=== PATIENT | female | born 1980 | race Two or more races ===

== ENCOUNTER 2018-04-11 11:35 | Emergency (ER) | payer SELFPAY ==
[~2018-04-11] VITALS: Ht 154.9 cm; Wt 59.9 kg
[~2018-04-11 11:35] MED LIST: ACETAMINOPHEN-1 EAC1 ORAL; CEPHALEXIN500 M1 PO; COLACE100 MG PO; IBUPROFEN600 MG ORAL; MIRALAX17 GM PO; NKM; NORCO 5-325 TA1 EACH ORAL; VICODIN 5-5001 EACH PO
[2018-04-11] MEDS ORDERED: LIDODERM700 M1 TOPIC (12:10)
[2018-04-11] MEDS ORDERED: ROBAXIN-750750 MG PO (12:10)
[2018-04-11] MEDS ORDERED: ACETAMINOPHEN-1 EAC1 ORAL (12:10)
[2018-04-11] MEDS ORDERED: Acetaminophen 500mg (ES) tab ORAL ONE (12:15)
[2018-04-11] MEDS ORDERED: Methocarbamol 750mg tab ORAL ONE (12:15)
[2018-04-11 12:20] VITALS: BP 104/65
--- NOTE | 2018-04-12 14:55 | Emergency Room Report ---
History of Present Illness General Chief Complaint: Back Pain-No Injury Source: Patient Present Illness HPI 37-year-old female presents ED complaining of back pain. Patient's been having this chronic back pain for many years now. Resulted from a work injury when she fell. States she has a slipped disc in her lower back and is dull, 8 out of 10, nonradiating. Denies bowel or bladder incontinence. Denies any leg or motor weakness. States that her pain medications at home are not helping. denies recent injury. no other aggravating or relieving factors. denies any other associated symptoms Allergies: Coded Allergies: No Known Allergies (Unverified , 09/20/12) Patient History Past Medical History: none Past Surgical History: none Pertinent Family History: none Social History: Denies: smoking, alcohol use, drug use Last Menstrual Period: 03/17/18 Now: No Immunizations: UTD Reviewed Nursing Documentation: PMH: Agreed; PSxH: Agreed Nursing Documentation-PMH Past Medical History: No History, Except For Review of Systems All Other Systems: negative except mentioned in HPI Physical Exam Vital Signs Date Time Temp Pulse Resp B/P (MAP) Pulse Ox O2 Delivery O2 Flow Rate FiO2 04/11/18 11:42 98.6 73 20 99/55 97 Room Air 98.6 Sp02 EP Interpretation: reviewed General Appearance: normal inspection Head: normocephalic Eyes: bilateral eye normal inspection, bilateral eye PERRL ENT: normal ENT inspection Neck: normal inspection Respiratory: normal inspection Cardiovascular #1: normal inspection Gastrointestinal: normal inspection Rectal: deferred Genitourinary: no CVA tenderness, vertebral tenderness Musculoskeletal: back normal Neurologic: alert, oriented x3, responsive, motor strength/tone normal, sensory intact, speech normal Psychiatric: normal inspection Skin: normal inspection Lymphatic: normal inspection Medical Decision Making Diagnostic Impression: Primary Impression: Chronic back pain Qualified Codes: M54.5 - Low back pain; G89.29 - Other chronic pain ER Course Hospital Course 37-year-old female presents ED complaining of lower back pain. h/o chronic back pain Differential diagnoses include: pyelonephritis, kidney stone, muscle strain, Lspine fracture Clinical course Patient placed on stretcher. After initial history, physical exam reveals female in no acute distress. There is no focal neurological deficits. 5 out of 5 motor strength in bilateral lower extremities. No incontinence. Patient given Tylenol, Lidoderm patch, Robaxin in ED area we'll discharge which were course and pain medications. Patient needs to follow-up with her PMD for further care Diagnosis - chronic back pain Stable and discharged to home with prescription for tylenol, robaxin, lidoderm. Followup with PMD. Return to ED if symptoms recur or worsen Last Vital Signs Date Time Temp Pulse Resp B/P (MAP) Pulse Ox O2 Delivery O2 Flow Rate FiO2 04/11/18 12:28 98.0 81 18 104/65 99 Room Air 98.0 Status: improved Disposition: HOME, SELF-CARE Condition: Stable Scripts Lidocaine (Lidoderm) 1 Each Adh..patch 1 PATCH TOPIC DAILY, #7 PATCH 0 Refills Patch(es) may remain in place for up to 12 hours in any 24-hour period. Prov: Edvin Oglesby MD 04/11/18 Methocarbamol* (ROBAXIN-750*) 750 Mg Tablet 750 MG PO TID, #21 TAB 0 Refills Prov: Edvin Oglesby MD 04/11/18 Acetaminophen With Codeine (T#3) (TYLENOL #3 TAB*) Y Tab 1 TAB ORAL Q8H PRN for For Pain, #15 TAB Prov: Edvin Oglesby MD 04/11/18 Referrals: NOT CHOSEN IPA/,REFERRING (PCP) Patient Instructions: Chronic Back Pain Edvin Oglesby MD Apr 12, 2018 14:55
== END 2018-04-11 12:45 | disposition home or self-care (01) ==
LOC: EMR 12:16
DX: M54.9 Dorsalgia, unspecified (principal); G89.29 Other chronic pain
CPT/HCPCS: 99283

== ENCOUNTER 2020-08-04 10:01 | Emergency (ER) | payer SELFPAY ==
[~2020-08-04] VITALS: Ht 154.9 cm; Wt 55.8 kg
[~2020-08-04 10:01] MED LIST changes: +LIDODERM700 M1 TOPIC; +ROBAXIN-750750 MG PO
--- NOTE | 2020-08-04 10:18 | Emergency Room Report ---
History of Present Illness General Chief Complaint: Female Urogenital Problems Source: Patient Present Illness HPI Patient complains of right flank pain radiating up to her head. She has a history of chronic back pain and also urinary tract infections in the past. The pain has been present for 3 weeks. It worsened within the last 24 to 48 hours. In addition she is complaining about some dysuria. She rates the pain 8/10 at this time. It is aching and somewhat sharp. She denies shortness of breath or cough. There is no nausea, vomiting or diarrhea. She tried taking 1000 mg of Naprosyn with little relief. She denies hematuria or previous renal stones. Last menstruation was July 19 and normal for her. Patient denies exposure to Covid positive contacts. No fevers, chills, sore throat, chest pain, palpitations, nausea, vomiting, diarrhea, shortness of breath, rashes, depression, anxiety, visual changes, dizziness, headache. Allergies: Coded Allergies: No Known Allergies (Unverified , 09/20/12) COVID-19 Screening Contact w/high risk pt: No Experienced COVID-19 symptoms?: No COVID-19 Testing performed BEFORE SCHOOL: Yes COVID-19 Screening: Negative COVID-19 COVID-19 Testing Source: nasal Patient History Past Medical History: see triage record, old chart reviewed Past Surgical History: other - Breast implants Social History: Reports: smoking Social History Narrative From home Last Menstrual Period: 07/19/20 Reviewed Nursing Documentation: PMH: Agreed; PSxH: Agreed Nursing Documentation-PMH Past Medical History: No History, Except For Review of Systems All Other Systems: negative except mentioned in HPI Physical Exam Vital Signs Date Time Temp Pulse Resp B/P (MAP) Pulse Ox O2 Delivery O2 Flow Rate FiO2 08/04/20 10:04 98.1 77 17 93/55 (68) 97 Room Air Sp02 EP Interpretation: reviewed, normal General Appearance: well appearing, no apparent distress, GCS 15 Head: normocephalic Eyes: bilateral eye normal inspection, bilateral eye PERRL, bilateral eye EOMI ENT: other - Wearing a mask Neck: supple Respiratory: lungs clear, normal breath sounds Cardiovascular #1: regular rate, rhythm Cardiovascular #2: 2+ radial (R) Gastrointestinal: normal inspection, normal bowel sounds, non tender - See , no mass, non-distended Genitourinary: CVA tenderness (R) Musculoskeletal: normal range of motion, gait/station normal, other - Paraspinous and some CVA tenderness. Able to sit and lay down without difficulty or muscle spasms. Left elbow full deformity Neurologic: alert, oriented x3, grossly normal Psychiatric: mood/affect normal Skin: no rash, warm/dry Medical Decision Making Diagnostic Impression: Primary Impression: Flank pain Additional Impression: Anemia Qualified Codes: D64.9 - Anemia, unspecified ER Course Patient presents with 3 weeks of right flank pain and now with some dysuria. Differential includes renal stone, pyelonephritis, muscle strain, other urinary tract infection, gallbladder pain amongst others. Patient evaluated with CT of the abdomen and pelvis, and labs. No signs or symptoms of Covid disease at this time. Patient is treated with IV hydration and analgesia. Labs unremarkable except for anemia. Urinalysis clear. CT of the abdomen as below which is essentially negative. Patient pain is resolved. Discussed findings with patient and observation as an outpatient. Discussed treatment plan. Discussed the importance of close outpa tient follow-up. Patient stable for outpatient observation and treatment. Laboratory Tests Test 08/04/20 10:28 White Blood Count 9.6 K/UL (4.8-10.8) Red Blood Count 4.58 M/UL (4.20-5.40) Hemoglobin 8.9 G/DL (12.0-16.0) L Hematocrit 29.6 % (37.0-47.0) L Mean Corpuscular Volume 65 FL (80-99) L Mean Corpuscular Hemoglobin 19.4 PG (27.0-31.0) L Mean Corpuscular Hemoglobin Concent 30.0 G/DL (32.0-36.0) L Red Cell Distribution Width 16.3 % (11.6-14.8) H Platelet Count 327 K/UL (150-450) Mean Platelet Volume 8.9 FL (6.5-10.1) Neutrophils (%) (Auto) 71.9 % (45.0-75.0) Lymphocytes (%) (Auto) 21.1 % (20.0-45.0) Monocytes (%) (Auto) 5.0 % (1.0-10.0) Eosinophils (%) (Auto) 0.9 % (0.0-3.0) Basophils (%) (Auto) 1.1 % (0.0-2.0) Prothrombin Time 11.1 SEC (9.30-11.50) Prothrombin Time INR 1.0 (0.9-1.1) Activated Partial Thromboplast Time 26 SEC (23-33) Urine Color Pale yellow Urine Appearance Clear Urine pH 7 (4.5-8.0) Urine Specific [place] 1.010 (1.005-1.035) Urine Protein Negative (NEGATIVE) Urine Glucose (UA) Negative (NEGATIVE) Urine Ketones Negative (NEGATIVE) Urine Blood 1+ (NEGATIVE) H Urine Nitrite Negative (NEGATIVE) Urine Bilirubin Negative (NEGATIVE) Urine Urobilinogen Normal MG/DL (0.0-1.0) Urine Leukocyte Esterase 2+ (NEGATIVE) H Urine RBC 0-2 /HPF (0 - 2) Urine WBC 2-4 /HPF (0 - 2) Urine Squamous Epithelial Cells Few /LPF (NONE/OCC) Urine Bacteria Few /HPF (NONE) Urine HCG, Qualitative Negative (NEGATIVE) Sodium Level 142 MMOL/L (136-145) Potassium Level 3.9 MMOL/L (3.5-5.1) Chloride Level 107 MMOL/L (98-107) Carbon Dioxide Level 26 MMOL/L (21-32) Anion Gap 9 mmol/L (5-15) Blood Urea Nitrogen 11 mg/dL (7-18) Creatinine 0.5 MG/DL (0.55-1.30) L Estimated Glomerular Filtration Rate > 60 mL/min (>60) Glucose Level 89 MG/DL (74-106) Calcium Level 8.5 MG/DL (8.5-10.1) Total Bilirubin 0.4 MG/DL (0.2-1.0) Aspartate Amino Transferase (AST) 16 U/L (15-37) Alanine Aminotransferase (ALT) 16 U/L (12-78) Alkaline Phosphatase 92 U/L (46-116) Total Protein 7.5 G/DL (6.4-8.2) Albumin 3.2 G/DL (3.4-5.0) L Globulin 4.3 g/dL Albumin/Globulin Ratio 0.7 (1.0-2.7) L Lipase 204 U/L (73-393) Rhythm Strip Diag. Results EP Interpretation: yes Rhythm: NSR, no PVC's, no ectopy CT/MRI/US Diagnostic Results CT/MRI/US Diagnostic Results : Imaging Test Ordered: Abdomen and pelvis Impression Impression: No definite acute abnormality. Negative for evidence of hydro nephrosis or urinary stone disease Bilateral breast implants are incidentally noted Last Vital Signs Date Time Temp Pulse Resp B/P (MAP) Pulse Ox O2 Delivery O2 Flow Rate FiO2 08/04/20 14:19 98.4 68 19 110/72 100 Room Air Status: improved Disposition: HOME, SELF-CARE Condition: Improved Scripts Tramadol Hcl* (ULTRAM*) 50 Mg Tablet 50 MG ORAL Q6H PRN for For Pain, #8 TAB 0 Refills Prov: Ki Coronado MD 08/04/20 Ibuprofen* (MOTRIN*) 600 Mg Tablet 600 MG ORAL Q6H PRN for FOR PAIN, #20 TAB 0 Refills Prov: Ki Coronado MD 08/04/20 Methocarbamol* (ROBAXIN-500*) 500 Mg Tablet 500 MG ORAL TID PRN for muscle spasms, #10 TAB 0 Refills Prov: Ki Coronado MD 08/04/20 Ki Coronado MD Aug 04, 2020 10:18
[2020-08-04] MEDS ORDERED: Morphine Sulfate 2mg/ml Inj(IV/IM USE ONLY) IVP ONE (10:30)
[2020-08-04] MEDS ORDERED: Ketorolac 30mg Inj IV ONE (10:30)
[2020-08-04 10:33] VITALS: BP 113/67
[2020-08-04 10:42] LABS: BASOPHILS % (AUTO) 1.1 % (0.0-2.0); EOSINOPHILS % (AUTO) 0.9 % (0.0-3.0); HEMATOCRIT 29.6 % (37.0-47.0); HEMOGLOBIN 8.9 G/DL (12.0-16.0); LYMPHOCYTES % (AUTO) 21.1 % (20.0-45.0); MEAN CORPUSCULAR VOLUME 65 FL (80-99); NEUTROPHILS % (AUTO) 71.9 % (45.0-75.0); PLATELET COUNT 327 K/UL (150-450); RED BLOOD COUNT 4.58 M/UL (4.20-5.40); RED CELL DISTRIBUTION WIDTH 16.3 % (11.6-14.8); WHITE BLOOD COUNT 9.6 K/UL (4.8-10.8)
[2020-08-04 10:44] LABS: APPEARANCE,URINE CLEAR; BILIRUBIN, URINE NEGATIVE (NEGATIVE); COLOR,URINE PALE YELLOW; GLUCOSE, URINE (UA) NEGATIVE (NEGATIVE); KETONES,URINE NEGATIVE (NEGATIVE); LEUKOCYTE ESTERASE ,URINE 2+ (NEGATIVE); NITRITE,URINE NEGATIVE (NEGATIVE); PH,URINE 7 (4.5-8.0); PROTEIN,URINE NEGATIVE (NEGATIVE); UROBILINOGEN,URINE NORMAL MG/DL (0.0-1.0)
[2020-08-04 10:51] LABS: ANION GAP 9 mmol/L (5-15); BLOOD UREA NITROGEN 11 mg/dL (7-18); CALCIUM 8.5 MG/DL (8.5-10.1); CARBON DIOXIDE 26 MMOL/L (21-32); CHLORIDE 107 MMOL/L (98-107); CREATININE 0.5 MG/DL (0.55-1.30); POTASSIUM 3.9 MMOL/L (3.5-5.1); SODIUM 142 MMOL/L (136-145)
[2020-08-04 10:56] LABS: ALANINE AMINOTRANSFERASE 16 U/L (12-78); ALBUMIN 3.2 G/DL (3.4-5.0); ALBUMIN/GLOBULIN RATIO 0.7 (1.0-2.7); ALKALINE PHOSPHATASE 92 U/L (46-116); ASPARTATE AMINO TRANSFERASE 16 U/L (15-37); BILIRUBIN,TOTAL 0.4 MG/DL (0.2-1.0)
--- NOTE | 2020-08-04 12:44 | Diagnostic Imaging Report ---
Indication: Right flank pain Technique: Spiral acquisitions obtained through the abdomen and pelvis. No oral or IV contrast utilized, per urinary stone protocol. Multiplanar reconstructions were generated. Total dose length product 207 mGycm. CTDIvol(s) 4 mGy. Dose reduction achieved using automated exposure control Comparison: 09/21/2012 Findings: No renal or ureteral calculi demonstrated. No hydronephrosis or hydroureter. Lack of IV contrast limits assessment of the renal parenchyma. No gross renal parenchymal mass or cyst demonstrated. Lack of IV contrast limits assessment of the other solid organs. The liver is unremarkable. The gallbladder is nondistended. The bile ducts are unremarkable. The pancreas, spleen, adrenals are unremarkable. No retroperitoneal or mesenteric mass or adenopathy. Uterus is prominent without discrete abnormality. No definite pelvic mass or adenopathy. The included lung bases demonstrate posterior dependent atelectatic changes. The bones are unremarkable. There are bilateral breast implants Impression: No definite acute abnormality. Negative for evidence of hydronephrosis or urinary stone disease Bilateral breast implants are incidentally noted The CT scanner at [facility] is accredited by the [employer] and the scans are performed using protocols designed to limit radiation exposure to as low as reasonably achievable to attain images of sufficient resolution adequate for diagnostic evaluation.
[2020-08-04] MEDS ORDERED: IBUPROFEN600 M1 ORAL (14:09)
[2020-08-04] MEDS ORDERED: ROBAXIN-500MG ORAL (14:09)
[2020-08-04] MEDS ORDERED: TRAMADOL HCL50 MG ORAL (14:09)
[2020-08-04 14:19] VITALS: BP 110/72
--- NOTE | 2020-08-04 14:19 | NUR ---
ER DISCHARGE NOTE: Patient is cleared to be discharged per ERMD, pt is aox4, on room air, with stable vital signs. pt was given dc and prescription instructions, pt was able to verbalize understanding, pt id band and iv site removed without complications. pt is able to ambulate with steady gait. pt took all belongings.
== END 2020-08-04 14:19 | disposition home or self-care (01) ==
LOC: EMR 12:14
DX: R10.9 Unspecified abdominal pain (principal); D64.9 Anemia, unspecified; R30.0 Dysuria; F17.200 Nicotine dependence, unspecified, uncomplicated; Z98.82 Breast implant status
CPT/HCPCS: 36415; 74176; 80053; 81003; 81025; 83690; 85025; 85610; 85730; 96361; 96374; 96375; 99284; J1885; J2270; J2405

== ENCOUNTER 2020-08-22 11:38 | Emergency (ER) | payer MEDICAID ==
[~2020-08-22] VITALS: Ht 157.5 cm; Wt 55.8 kg
[~2020-08-22 11:38] MED LIST changes: +IBUPROFEN600 M1 ORAL; +ROBAXIN-500MG ORAL; +TRAMADOL HCL50 MG ORAL
[2020-08-22] MEDS ORDERED: Ketorolac 30mg Inj IV ONE (12:30)
[2020-08-22] MEDS ORDERED: Omnipaque 350 100ml vial INJ PRN (12:30)
--- NOTE | 2020-08-22 12:48 | Emergency Room Report ---
History of Present Illness General Chief Complaint: back pain Source: Patient (Essie Perez M.D.) Present Illness HPI Patient is a 40-year-old female current smoker who presents to the ER complaining of right sided upper back pain and substernal chest discomfort. She states that this has been going on for the past month. She states that it is worse when she takes in a deep breath. She denies any lower extremity pain but states that she occasionally gets edema. She denies any family history of early cardiovascular disease. She denies any history of cancer, recent surgery or recent travel. She denies cough. She denies any abdominal pain nausea or vomiting. (Essie Perez M.D.) Allergies: Coded Allergies: No Known Allergies (Unverified , 09/20/12) COVID-19 Screening Contact w/high risk pt: No Experienced COVID-19 symptoms?: No COVID-19 Testing performed CLAIMS VICE PRESIDENT: No (Essie Perez M.D.) Patient History Reviewed Nursing Documentation: PMH: Agreed; PSxH: Agreed (Essie Perez M.D.) Review of Systems All Other Systems: negative except mentioned in HPI (Essie Perez M.D.) Physical Exam Vital Signs Date Time Temp Pulse Resp B/P (MAP) Pulse Ox O2 Delivery O2 Flow Rate FiO2 08/22/20 12:16 98.2 84 18 98/70 (79) Sp02 EP Interpretation: reviewed, normal General Appearance: no apparent distress, alert, GCS 15, non-toxic Head: normocephalic, atraumatic Eyes: bilateral eye normal inspection, bilateral eye PERRL ENT: hearing grossly normal, normal pharynx, no angioedema, normal voice Neck: full range of motion, supple/symm/no masses Respiratory: no respiratory distress, no accessory muscle use, other - Pain on inspiration tenderness palpation of the right lateral ribs no crepitus Cardiovascular #1: regular rate, rhythm Gastrointestinal: non tender, soft, no guarding, no rebound Rectal: deferred Genitourinary: no CVA tenderness Musculoskeletal: normal range of motion, other - biLateral calf tenderness Neurologic: esthetician/spa coordinator III-XII nml as tested, oriented x3 Psychiatric: no suicidal/homicidal ideation Skin: no rash Lymphatic: no adenopathy (Essie Perez M.D.) Medical Decision Making Diagnostic Impression: Primary Impression: Anemia Additional Impression: Chest wall pain ER Course Patient's labs demonstrate anemia which is chronic. Patient not currently requiring a blood transfusion. Otherwise patient's labs demonstrate no significant acute abnormalities. Duplex of the lower extremities demonstrates no evidence for DVT. Chest x-ray demonstrates no acute cardiopulmonary pathology. CTA has been ordered to rule out pulmonary embolism. Patient signed out to Dr. Landrum at [address] results, reevaluation and final disposition. Laboratory Tests Test 08/22/20 12:38 White Blood Count 8.2 K/UL (4.8-10.8) Red Blood Count 4.62 M/UL (4.20-5.40) Hemoglobin 8.7 G/DL (12.0-16.0) L Hematocrit 29.9 % (37.0-47.0) L Mean Corpuscular Volume 65 FL (80-99) L Mean Corpuscular Hemoglobin 18.8 PG (27.0-31.0) L Mean Corpuscular Hemoglobin Concent 29.0 G/DL (32.0-36.0) L Red Cell Distribution Width 16.3 % (11.6-14.8) H Platelet Count 409 K/UL (150-450) Mean Platelet Volume 8.5 FL (6.5-10.1) Neutrophils (%) (Auto) 70.4 % (45.0-75.0) Lymphocytes (%) (Auto) 20.8 % (20.0-45.0) Monocytes (%) (Auto) 6.4 % (1.0-10.0) Eosinophils (%) (Auto) 1.5 % (0.0-3.0) Basophils (%) (Auto) 0.9 % (0.0-2.0) Prothrombin Time 11.6 SEC (9.30-11.50) H Prothrombin Time INR 1.1 (0.9-1.1) Activated Partial Thromboplast Time 26 SEC (23-33) D-Dimer 0.37 mg/L FEU (0.00-0.49) Urine Color Pale yellow Urine Appearance Clear Urine pH 6.5 (4.5-8.0) Urine Specific [place] 1.010 (1.005-1.035) Urine Protein Negative (NEGATIVE) Urine Glucose (UA) Negative (NEGATIVE) Urine Ketones Negative (NEGATIVE) Urine Blood Negative (NEGATIVE) Urine Nitrite Negative (NEGATIVE) Urine Bilirubin Negative (NEGATIVE) Urine Urobilinogen Normal MG/DL (0.0-1.0) Urine Leukocyte Esterase Negative (NEGATIVE) Sodium Level 141 MMOL/L (136-145) Potassium Level 3.9 MMOL/L (3.5-5.1) Chloride Level 105 MMOL/L (98-107) Carbon Dioxide Level 29 MMOL/L (21-32) Anion Gap 7 mmol/L (5-15) Blood Urea Nitrogen 11 mg/dL (7-18) Creatinine 0.5 MG/DL (0.55-1.30) L Estimated Glomerular Filtration Rate > 60 mL/min (>60) Glucose Level 91 MG/DL (74-106) Calcium Level 8.7 MG/DL (8.5-10.1) Magnesium Level 2.0 MG/DL (1.8-2.4) Total Bilirubin 0.4 MG/DL (0.2-1.0) Aspartate Amino Transferase (AST) 10 U/L (15-37) L Alanine Aminotransferase (ALT) 12 U/L (12-78) Alkaline Phosphatase 95 U/L (46-116) Troponin I 0.005 ng/mL (0.000-0.056) Pro-B-Type Natriuretic Peptide 60 pg/mL (0-125) Total Protein 7.7 G/DL (6.4-8.2) Albumin 3.4 G/DL (3.4-5.0) Globulin 4.3 g/dL Albumin/Globulin Ratio 0.8 (1.0-2.7) L Human Chorionic Gonadotropin, Qual Negative (NEGATIVE) Urine Opiates Screen Negative (NEGATIVE) Urine Barbiturates Screen Negative (NEGATIVE) Phencyclidine (PCP) Screen Negative (NEGATIVE) Urine Amphetamines Screen Negative (NEGATIVE) Urine Benzodiazepines Screen Negative (NEGATIVE) Urine Cocaine Screen Negative (NEGATIVE) Urine Marijuana (THC) Screen Negative (NEGATIVE) (Essie Perez M.D.) ER Course Assumed care of the patient from the previous provider at approximately 1400. Please refer to initial note for full history and physical exam. Briefly, 37-year-old female presented for chest pain. Patient found to be anemic which is chronic. No DVT identified. At the time of signout CTA was pending. No pulmonary embolism or other pathology identified. Patient has remained stable in the ER and is stable for outpatient follow-up. Will discharge with PMD follow-up. Instructed to return with new or worsening symptoms. Laboratory Tests Test 08/22/20 12:38 White Blood Count 8.2 K/UL (4.8-10.8) Red Blood Count 4.62 M/UL (4.20-5.40) Hemoglobin 8.7 G/DL (12.0-16.0) L Hematocrit 29.9 % (37.0-47.0) L Mean Corpuscular Volume 65 FL (80-99) L Mean Corpuscular Hemoglobin 18.8 PG (27.0-31.0) L Mean Corpuscular Hemoglobin Concent 29.0 G/DL (32.0-36.0) L Red Cell Distribution Width 16.3 % (11.6-14.8) H Platelet Count 409 K/UL (150-450) Mean Platelet Volume 8.5 FL (6.5-10.1) Neutrophils (%) (Auto) 70.4 % (45.0-75.0) Lymphocytes (%) (Auto) 20.8 % (20.0-45.0) Monocytes (%) (Auto) 6.4 % (1.0-10.0) Eosinophils (%) (Auto) 1.5 % (0.0-3.0) Basophils (%) (Auto) 0.9 % (0.0-2.0) Prothrombin Time 11.6 SEC (9.30-11.50) H Prothrombin Time INR 1.1 (0.9-1.1) Activated Partial Thromboplast Time 26 SEC (23-33) D-Dimer 0.37 mg/L FEU (0.00-0.49) Urine Color Pale yellow Urine Appearance Clear Urine pH 6.5 (4.5-8.0) Urine Specific [place] 1.010 (1.005-1.035) Urine Protein Negative (NEGATIVE) Urine Glucose (UA) Negative (NEGATIVE) Urine Ketones Negative (NEGATIVE) Urine Blood Negative (NEGATIVE) Urine Nitrite Negative (NEGATIVE) Urine Bilirubin Negative (NEGATIVE) Urine Urobilinogen Normal MG/DL (0.0-1.0) Urine Leukocyte Esterase Negative (NEGATIVE) Sodium Level 141 MMOL/L (136-145) Potassium Level 3.9 MMOL/L (3.5-5.1) Chloride Level 105 MMOL/L (98-107) Carbon Dioxide Level 29 MMOL/L (21-32) Anion Gap 7 mmol/L (5-15) Blood Urea Nitrogen 11 mg/dL (7-18) Creatinine 0.5 MG/DL (0.55-1.30) L Estimated Glomerular Filtration Rate > 60 mL/min (>60) Glucose Level 91 MG/DL (74-106) Calcium Level 8.7 MG/DL (8.5-10.1) Magnesium Level 2.0 MG/DL (1.8-2.4) Total Bilirubin 0.4 MG/DL (0.2-1.0) Aspartate Amino Transferase (AST) 10 U/L (15-37) L Alanine Aminotransferase (ALT) 12 U/L (12-78) Alkaline Phosphatase 95 U/L (46-116) Troponin I 0.005 ng/mL (0.000-0.056) Pro-B-Type Natriuretic Peptide 60 pg/mL (0-125) Total Protein 7.7 G/DL (6.4-8.2) Albumin 3.4 G/DL (3.4-5.0) Globulin 4.3 g/dL Albumin/Globulin Ratio 0.8 (1.0-2.7) L Human Chorionic Gonadotropin, Qual Negative (NEGATIVE) Urine Opiates Screen Negative (NEGATIVE) Urine Barbiturates Screen Negative (NEGATIVE) Phencyclidine (PCP) Screen Negative (NEGATIVE) Urine Amphetamines Screen Negative (NEGATIVE) Urine Benzodiazepines Screen Negative (NEGATIVE) Urine Cocaine Screen Negative (NEGATIVE) Urine Marijuana (THC) Screen Negative (NEGATIVE) (Kenton Landrum MD) EKG Diagnostic Results Troponin ordered: Yes When was troponin ordered?: Aug 22, 2020 EKG Time: 12:40 EP Interpretation: Essie Perez MD Rate: normal - 65 bpm Rhythm: NSR ST Segments: no acute changes ASA given to the pt in ED: No (Essie Perez M.D.) Rhythm Strip Diag. Results Rhythm Strip Time: 12:52 EP Interpretation: yes - Essie Perez MD Rate: 67 bpm Rhythm: NSR, no PVC's, no ectopy (Essie Perez M.D.) Chest X-Ray Diagnostic Results Chest X-Ray Diagnostic Results : Chest X-Ray Ordered: Yes # of Views/Limited/Complete: 1 View Indication: Chest Pain EP Interpretation: Yes Interpretation: no consolidation, no effusion, no pneumothorax Impression: No acute disease Electronically Signed by: Essie Perez MD (Essie Perez M.D.) CT/MRI/US Diagnostic Results CT/MRI/US Diagnostic Results : Impression Final Report EXAM: CT Chest With Intravenous Contrast CLINICAL HISTORY: SOB TECHNIQUE: Axial computed tomography images of the chest with intravenous contrast. CTDI is 54.40 mGy and DLP is 128.30 mGy-cm. One or more of the following dose reduction techniques were used: automated exposure control, adjustment of the mA and/or kV according to patient size, use of iterative reconstruction technique. MIP reconstructed images were created and reviewed. COMPARISON: No relevant prior studies available. FINDINGS: Lungs: No pulmonary embolus. Mild consolidative atelectasis in the lung bases. Pleural space: Unremarkable. No pneumothorax. No effusion. Heart: No cardiomegaly. No pericardial effusion. Bones/joints: No acute fracture. Soft tissues: Breast implants. Vasculature: Unremarkable. No thoracic aortic aneurysm. Lymph nodes: No enlarged lymph nodes. IMPRESSION: No pulmonary embolus. Radiologist: Efrain Velez M.D. Electronically Signed: 08/22/20 14:53 Study ready at 14:17 and initial results transmitted at 14:53 (Kenton Landrum MD) Last Vital Signs Date Time Temp Pulse Resp B/P (MAP) Pulse Ox O2 Delivery O2 Flow Rate FiO2 08/22/20 12:16 98.2 84 18 98/70 (79) (Essie Perez M.D.) Disposition: HOME, SELF-CARE Condition: Stable Physician Consult: Dr. Landrum at 1400 (Essie Perez M.D.) Referrals: NOT CHOSEN IPA/,REFERRING (PCP) Additional Instructions: Please note that this report is being documented using [employer] technology. This can lead to erroneous entry secondary to incorrect interpretation by the dictating instrument. Essie Perez M.D. Aug 22, 2020 12:48 Kenton Landrum MD Aug 22, 2020 15:05
--- NOTE | 2020-08-22 12:58 | Diagnostic Imaging Report ---
EXAM: XR Chest, 1 View CLINICAL HISTORY: SOB TECHNIQUE: Frontal view of the chest. COMPARISON: No relevant prior studies available. FINDINGS: Lungs: No consolidation. Pleural space: Unremarkable. No pneumothorax. Heart: Unremarkable. No cardiomegaly. Mediastinum: Unremarkable. Bones/joints: No acute fracture. IMPRESSION: No acute cardiopulmonary disease.
[2020-08-22 13:10] LABS: BASOPHILS % (AUTO) 0.9 % (0.0-2.0); EOSINOPHILS % (AUTO) 1.5 % (0.0-3.0); HEMATOCRIT 29.9 % (37.0-47.0); HEMOGLOBIN 8.7 G/DL (12.0-16.0); LYMPHOCYTES % (AUTO) 20.8 % (20.0-45.0); MEAN CORPUSCULAR VOLUME 65 FL (80-99); MONOCYTES % (AUTO) 6.4 % (1.0-10.0); NEUTROPHILS % (AUTO) 70.4 % (45.0-75.0); PLATELET COUNT 409 K/UL (150-450); RED BLOOD COUNT 4.62 M/UL (4.20-5.40); RED CELL DISTRIBUTION WIDTH 16.3 % (11.6-14.8); WHITE BLOOD COUNT 8.2 K/UL (4.8-10.8)
[2020-08-22 13:14] LABS: APPEARANCE,URINE CLEAR; BILIRUBIN, URINE NEGATIVE (NEGATIVE); COLOR,URINE PALE YELLOW; GLUCOSE, URINE (UA) NEGATIVE (NEGATIVE); KETONES,URINE NEGATIVE (NEGATIVE); LEUKOCYTE ESTERASE ,URINE NEGATIVE (NEGATIVE); NITRITE,URINE NEGATIVE (NEGATIVE); PH,URINE 6.5 (4.5-8.0); PROTEIN,URINE NEGATIVE (NEGATIVE); UROBILINOGEN,URINE NORMAL MG/DL (0.0-1.0)
[2020-08-22 13:21] VITALS: BP 114/78
[2020-08-22 13:23] LABS: ANION GAP 7 mmol/L (5-15); BLOOD UREA NITROGEN 11 mg/dL (7-18); CALCIUM 8.7 MG/DL (8.5-10.1); CARBON DIOXIDE 29 MMOL/L (21-32); CHLORIDE 105 MMOL/L (98-107); CREATININE 0.5 MG/DL (0.55-1.30); POTASSIUM 3.9 MMOL/L (3.5-5.1); SODIUM 141 MMOL/L (136-145)
[2020-08-22 13:24] LABS: INR 1.1 (0.9-1.1)
--- NOTE | 2020-08-22 13:29 | Diagnostic Imaging Report ---
EXAM: US Duplex Bilateral Lower Extremities Veins CLINICAL HISTORY: PAIN TECHNIQUE: Real-time duplex ultrasound scan of the bilateral lower extremity veins integrating B-mode two-dimensional vascular structure, Doppler spectral analysis, color flow Doppler imaging and compression. COMPARISON: No relevant prior studies available. FINDINGS: Right deep veins: Unremarkable. No DVT in the right common femoral, femoral, proximal deep femoral or popliteal veins. The veins demonstrate normal color flow, are normally compressible, with normal phasic flow and/or augmentation response. Right superficial veins: Unremarkable. No thrombus in the visualized right great saphenous vein. Left deep veins: Unremarkable. No DVT in the left common femoral, femoral, proximal deep femoral or popliteal veins. The veins demonstrate normal color flow, are normally compressible, with normal phasic flow and/or augmentation response. Left superficial veins: Unremarkable. No thrombus in the visualized left great saphenous vein. Soft tissues: No acute findings. IMPRESSION: No DVT demonstrated.
[2020-08-22 13:39] LABS: ALANINE AMINOTRANSFERASE 12 U/L (12-78); ALBUMIN 3.4 G/DL (3.4-5.0); ALBUMIN/GLOBULIN RATIO 0.8 (1.0-2.7); ALKALINE PHOSPHATASE 95 U/L (46-116); ASPARTATE AMINO TRANSFERASE 10 U/L (15-37); BILIRUBIN,TOTAL 0.4 MG/DL (0.2-1.0)
--- NOTE | 2020-08-22 14:54 | Diagnostic Imaging Report ---
EXAM: CT Chest With Intravenous Contrast CLINICAL HISTORY: SOB TECHNIQUE: Axial computed tomography images of the chest with intravenous contrast. CTDI is 54.40 mGy and DLP is 128.30 mGy-cm. One or more of the following dose reduction techniques were used: automated exposure control, adjustment of the mA and/or kV according to patient size, use of iterative reconstruction technique. MIP reconstructed images were created and reviewed. COMPARISON: No relevant prior studies available. FINDINGS: Lungs: No pulmonary embolus. Mild consolidative atelectasis in the lung bases. Pleural space: Unremarkable. No pneumothorax. No effusion. Heart: No cardiomegaly. No pericardial effusion. Bones/joints: No acute fracture. Soft tissues: Breast implants. Vasculature: Unremarkable. No thoracic aortic aneurysm. Lymph nodes: No enlarged lymph nodes. IMPRESSION: No pulmonary embolus.
[2020-08-22 15:06] VITALS: BP 102/51
== END 2020-08-22 15:13 | disposition home or self-care (01) ==
LOC: EMR 12:20
DX: D64.9 Anemia, unspecified (principal); R07.89 Other chest pain
CPT/HCPCS: 36415; 71045; 71275; 80053; 80307; 81003; 83735; 83880; 84484; 84703; 85025; 85379; 85610; 85730; 93970; 96361; 96374; 99284; J7030

== ENCOUNTER 2020-09-15 21:35 | Emergency (ER) | payer MEDICAID ==
[~2020-09-15] VITALS: Ht 157.5 cm; Wt 54.4 kg
[2020-09-15 21:52] VITALS: BP 110/68
--- NOTE | 2020-09-15 21:53 | NUR ---
Pte came to ER ambulatory c/o headache for 1 month intensifique yesterday. Will continue to monitor.
--- NOTE | 2020-09-15 21:56 | Emergency Room Report ---
History of Present Illness General Chief Complaint: Headache Source: Patient Present Illness HPI Patient's been having increased pains in her neck for approximately 1 month. Got worse tonight. There is been no injury. She did suffer a slip and fall at her work 3 years ago. She is states that she has never had x-rays of her neck. She denies any numbness or weakness. She denies fevers or chills. There is no upper respiratory symptoms and no chest pain. She has been taking Tylenol and Motrin. Last time she took them was in the morning. She rates the pain 8/10 at this time. It is aching and she feels stiffness in her neck. The pain radiates up into her head and also down into her upper back. Patient denies exposure to Covid positive contacts. No upper respiratory symptomatology. She is just coming off of her menstruation which is normal for her and does not believe she is at this time. 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 Brought by father of children Last Menstrual Period: 09/07/20 Reviewed Nursing Documentation: PMH: Agreed; PSxH: Agreed Nursing Documentation-PMH Past Medical History: No Stated History Review of Systems All Other Systems: negative except mentioned in HPI Physical Exam Vital Signs Date Time Temp Pulse Resp B/P (MAP) Pulse Ox O2 Delivery O2 Flow Rate FiO2 09/15/20 21:37 98.6 76 18 100/61 (74) 100 Room Air Sp02 EP Interpretation: reviewed, normal General Appearance: well appearing, no apparent distress, GCS 15 Head: normocephalic Eyes: bilateral eye normal inspection, bilateral eye PERRL ENT: other - Renal mask Neck: no bony tend, tender - Bilateral muscle groups extending down into the upper back with muscle spasm and some decreased flexion Respiratory: chest non-tender, lungs clear, normal breath sounds Cardiovascular #1: regular rate, rhythm Gastrointestinal: normal inspection Musculoskeletal: gait/station normal Neurologic: alert, motor strength/tone normal, 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 Differential includes muscle spasm, cervical strain amongst others. Patient is nontoxic and has no fevers. There are no red flag symptoms at this time. Neurologic exam is normal regarding her complaint of headache. The headache appears related to neck pain and muscle spasm. Patient will be administered Toradol, Percocet and Robaxin. X-ray studies not indicated at this time. Patient improved with treatment. A cervical collar is applied by me with some relief. No medical emergency at this time. Discussed treatment plan with patient. Patient is stable for outpatient observation and treatment. Last Vital Signs Date Time Temp Pulse Resp B/P (MAP) Pulse Ox O2 Delivery O2 Flow Rate FiO2 09/15/20 22:55 98.2 79 17 115/77 99 Room Air Status: improved Disposition: HOME, SELF-CARE Condition: Improved Scripts Methocarbamol* (ROBAXIN-500*) 500 Mg Tablet 500 MG ORAL TID PRN for muscle spasm, #10 TAB 0 Refills Prov: Ki Coronado MD 09/15/20 Ibuprofen* (MOTRIN*) 600 Mg Tablet 600 MG ORAL Q6H PRN for FOR PAIN, #20 TAB 0 Refills Prov: Ki Coronado MD 09/15/20 Hydrocodone/Acetaminophen 5-325* (HYDROCODONE/ACETAMINOPHEN 5-325*) 1 Each Tablet 1 TAB ORAL Q6H PRN for For Pain, #10 TAB 0 Refills Prov: Ki Coronado MD 09/15/20 Ki Coronado MD Sep 15, 2020 21:56
[2020-09-15] MEDS ORDERED: Methocarbamol 500mg tab ORAL ONE (22:00)
[2020-09-15] MEDS ORDERED: Ketorolac 30mg Inj IM ONE (22:00)
[2020-09-15] MEDS ORDERED: oxyCODONE HCL/Acetaminophen 5/325mg ORAL ONE (22:00)
[2020-09-15] MEDS ORDERED: Acetaminophen 500mg (ES) tab ORAL ONE (22:06)
[2020-09-15] MEDS ORDERED: IBUPROFEN600 M1 ORAL (22:49)
[2020-09-15] MEDS ORDERED: ROBAXIN-500MG ORAL (22:49)
[2020-09-15] MEDS ORDERED: HYDROCODON-ACE1 EA15 ORAL (22:49)
[2020-09-15 22:55] VITALS: BP 115/77
--- NOTE | 2020-09-15 22:57 | NUR ---
Patient was discharge home as EDP ordered. All vital signs were taken within normal range. Patient . All prescriptions and instructions were given to the patient . Patient verbalized understanding. patient left the hospital in stable condition .
== END 2020-09-15 22:55 | disposition home or self-care (01) ==
LOC: EMR 21:55
DX: M54.2 Cervicalgia (principal); M62.838 Other muscle spasm; M54.6 Pain in thoracic spine; F17.200 Nicotine dependence, unspecified, uncomplicated
CPT/HCPCS: 96372; J1885; Z7502; 99283